=== PATIENT | female | born 1945 | race African-American/Black ===

== ENCOUNTER 2020-05-19 10:20 | Observation (INO) ==
[2020-05-19 11:03] LABS: Amorphous Crystals,Urine Occasional /HPF (Few); Bilirubin,Urine Negative (Negative); Blood, Urine Negative (Negative); Glucose,Urine (UA) Negative (Negative); Ketones,Urine Negative (Negative); Mucus,Urine Occasional /LPF (Occasional); Nitrite,Urine Negative (Negative); Protein,Urine 30 MG/DL; RBC,Urine <1 /HPF (0-4); Squamous Epithelial Cell,Urine Occasional /HPF (0-10); Urine Appearance Slightly Hazy (Clear); Urine Specific Gravity 1.026 (1.001-1.035); Urine Urobilinogen < 2.0 EU/DL (0.2-1.0); WBC,Urine <1 /HPF (0-6)
[2020-05-19 11:04] LABS: Urine Color Yellow (Yellow)
[2020-05-19 11:32] LABS: Basophils % 0.2 % (0.0-0.8); Eosinophils % 0.2 % (0.00-10.9); Hematocrit 34.4 VOL% (35.7-47.0); Hemoglobin 10.6 GM/DL (12.0-16.0); Immature Granulocytes % 1.5 %; Immature Granulocytes Absolute 0.19 #; Lymphocytes # 0.6 10*3/uL (1.4-4.0); Mean Corpuscular HGB Conc 30.8 GM/DL (32-36); Mean Corpuscular Volume 80.6 FL (87-102); Mean Platelet Volume 10.4 FL (9.6-12.0); Monocytes % 6.1 % (1.7-12.7); Platelet Count 315 T/CUMM (130-400); Red Blood Count 4.27 MC/CUMM (3.8-5.5); Red Cell Distribution Width 19.2 % (9.3-17.3); White Blood Count 12.7 T/CUMM (4-12)
[2020-05-19 11:43] LABS: Troponin I 0.019 NG/ML (0.00-0.045)
[2020-05-19 11:44] LABS: Calcium 8.7 MG/DL (8.5-10.1); Osmolality,Calculated 287.1 MOS/KG (273-304)
[2020-05-19] MEDS ORDERED: SODIUM CHLORIDE 0.9% 1,000 ML IV STA (14:06)
[2020-05-19] MEDS ORDERED: ONDANSETRON 4 MG/2 ML VIAL IV PRN (15:53)
[2020-05-19] MEDS ORDERED: DEXTROSE 50% 25 GM/50 ML VIAL IV PRN (15:53)
[2020-05-19] MEDS ORDERED: ACETAMINOPHEN 325 MG TABLET PO PRN (15:53)
[2020-05-19] MEDS ORDERED: GLUCAGON 1 MG VIAL IM PRN (15:53)
[2020-05-19] MEDS ORDERED: MAGNESIUM HYDROXIDE SUSP 30 ML UDCUP PO PRN (16:07)
[2020-05-19] MEDS ORDERED: POLYETHYLENE GLYCOL POWDER 17 GM PACK PO PRN (16:07)
[2020-05-19] MEDS ORDERED: cloNIDine 0.1 MG TABLET PO PRN (16:07)
[2020-05-19] MEDS ORDERED: ENOXAPARIN 40 MG/0.4 ML SYRINGE SUBCUT SCH (16:30)
[2020-05-19] MEDS ORDERED: PHENYTOIN INJ 500 MG in SODIUM CHLORIDE 0.9% 100 ML IV ONE (21:00)
[2020-05-19] MEDS ORDERED: VERAPAMIL SR 240 MG TABLET PO SCH (21:00)
[2020-05-20] MEDS: MEMANTINE 5 MG TABLET PO SCH ×2 (00:42→09:15)
[2020-05-20] MEDS: DOCUSATE/SENNA 50-8.6 MG TABLET PO SCH ×2 (00:42→09:15)
[2020-05-20] MEDS: MENTHOL/ZINC OXIDE OINT 71 GM JAR TOP SCH ×3 (00:44→14:02)
[2020-05-20] MEDS ORDERED: PHENYTOIN INJ 500 MG in SODIUM CHLORIDE 0.9% 100 ML IV ONE (01:00)
[2020-05-20 05:49] LABS: Basophils % 0.3 % (0.0-0.8); Eosinophils % 0.4 % (0.00-10.9); Hemoglobin 10.1 GM/DL (12.0-16.0); Immature Granulocytes % 0.6 %; Immature Granulocytes Absolute 0.06 #; Lymphocytes # 1.3 10*3/uL (1.4-4.0); Lymphocytes % 13.2 % (21.3-54.2); Mean Corpuscular HGB Conc 31.6 GM/DL (32-36); Mean Corpuscular Volume 80.4 FL (87-102); Mean Platelet Volume 10.5 FL (9.6-12.0); Monocytes % 9.9 % (1.7-12.7); Neutrophils % 75.6 % (38.7-73.9); Platelet Count 298 T/CUMM (130-400); Red Blood Count 3.98 MC/CUMM (3.8-5.5); Red Cell Distribution Width 19.2 % (9.3-17.3)
[2020-05-20 06:32] LABS: Calcium 8.7 MG/DL (8.5-10.1); Osmolality,Calculated 282.3 MOS/KG (273-304)
[2020-05-20] MEDS ORDERED: ASCORBIC ACID 500 MG TABLET PO SCH (09:00)
[2020-05-20] MEDS ORDERED: CHOLECALCIFEROL 1,000 UNIT TABLET PO SCH (09:00)
[2020-05-20] MEDS ORDERED: ASPIRIN EC 325 MG TABLET PO SCH (09:00)
[2020-05-20] MEDS ORDERED: carvediloL 6.25 MG TABLET PO SCH (09:00)
[2020-05-20] MEDS ORDERED: lisinopriL 20 MG TABLET PO SCH (09:00)
[2020-05-20] MEDS ORDERED: MULTIVITAMIN (CENTRUM) TABLET PO SCH (09:00)
[2020-05-20] MEDS ORDERED: PHENYTOIN 100 MG/4 ML UDCUP PO SCH (09:00)
[2020-05-20] MEDS ORDERED: DONEPEZIL 10 MG TABLET PO SCH (09:00)
[2020-05-20 11:28] VITALS: BP 106/61
== END 2020-05-20 14:01 ==
LOC: N.EDINP 10:20 → N.ED 10:20 → N.3E 19:44
PROVIDERS: ADMIT Internal Medicine Geriatric Medicine; ATTEND Internal Medicine Geriatric Medicine

== ENCOUNTER 2020-09-08 06:01 | Inpatient (IN) ==
[2020-09-08] MEDS ORDERED: SODIUM CHLORIDE 0.9% 1,000 ML IV STA ×2 (06:06→07:41)
[2020-09-08] MEDS ORDERED: ONDANSETRON 4 MG/2 ML VIAL IV STA (06:06)
[2020-09-08] MEDS ORDERED: PANTOPRAZOLE 40 MG VIAL IV STA (06:06)
[2020-09-08] MEDS ORDERED: ETOMIDATE 20 MG/10 ML VIAL IV ONE (06:07)
[2020-09-08] MEDS ORDERED: MIDAZOLAM 2 MG/2 ML VIAL IV STA ×2 (06:07→10:30)
[2020-09-08] MEDS ORDERED: PIPERACILLIN/TAZOBACTAM 3,375 MG in SODIUM CHLORIDE 0.9% 100 ML IV STA (06:13)
[2020-09-08] MEDS ORDERED: SODIUM CHLORIDE 0.9% 1,000 ML IV PRN ×2 (06:21→08:52)
[2020-09-08] MEDS ORDERED: ROCURONIUM 100 MG/10 ML VIAL IV ONE (06:23)
[2020-09-08] MEDS ORDERED: SODIUM CHLORIDE 0.9% 1,000 ML IV ONE (07:00)
[2020-09-08 07:01] LABS: Basophils % 0.3 % (0.0-0.8); Hematocrit 36.7 VOL% (35.7-47.0); Hemoglobin 11.8 GM/DL (12.0-16.0); Immature Granulocytes % 0.3 %; Immature Granulocytes Absolute 0.01 #; Lymphocytes # 0.3 10*3/uL (1.4-4.0); Lymphocytes % 6.8 % (21.3-54.2); Mean Corpuscular HGB Conc 32.2 GM/DL (32-36); Mean Platelet Volume 9.6 FL (9.6-12.0); Monocytes % 6.1 % (1.7-12.7); Neutrophils % 86.5 % (38.7-73.9); Platelet Count 329 T/CUMM (130-400); Red Blood Count 3.99 MC/CUMM (3.8-5.5); Red Cell Distribution Width 17.9 % (9.3-17.3)
[2020-09-08 07:13] LABS: INR 1.1; PT Patient Result 11.9 SECS (9.8-11.9)
[2020-09-08] MEDS ORDERED: ROCURONIUM 100 MG/10 ML VIAL IV STA (07:15)
[2020-09-08 07:19] LABS: Albumin 2.5 G/DL (3.4-5.0); Bilirubin,Total 1.7 MG/DL (0.2-1.0); Calcium 8.1 MG/DL (8.5-10.1); Osmolality,Calculated 301.6 MOS/KG (273-304); Potassium 3.8 MMOL/L (3.5-5.1); Total Protein 6.7 G/DL (6.4-8.3)
[2020-09-08 07:37] LABS: Band Neutrophils 20 % (0-10); Hypochromasia 1+; Lymphocytes 6 % (20-55); Microcytosis 1+; Platelet Estimate Adequate; Segmented Neutrophils 66 % (50-85); Total Cells Counted 100
[2020-09-08 07:38] LABS: Ovalocytes Slight
[2020-09-08] MEDS: NOREPINEPHRINE 8 MG in SODIUM CHLORIDE 0.9% 242 ML IV PRN ×2 (09:10→18:20)
[2020-09-08] MEDS ORDERED: MIDAZOLAM 10 MG/2 ML VIAL ONE (10:29)
[2020-09-08] MEDS ORDERED: ONDANSETRON 4 MG/2 ML VIAL IV PRN (11:31)
[2020-09-08] MEDS ORDERED: ALBUTEROL 2.5 MG/3 ML NEB RESP TX PRN (11:31)
[2020-09-08] MEDS: LACTATED RINGERS 1,000 ML IV SCH ×2 (11:37→18:20)
[2020-09-08 11:41] LABS: Hematocrit 38.8 VOL% (35.7-47.0); Hemoglobin 12.8 GM/DL (12.0-16.0); Immature Granulocytes % 0.7 %; Immature Granulocytes Absolute 0.02 #; Lymphocytes # 0.8 10*3/uL (1.4-4.0); Lymphocytes % 25.7 % (21.3-54.2); Mean Corpuscular Volume 89.6 FL (87-102); Mean Platelet Volume 9.4 FL (9.6-12.0); Monocytes % 9.1 % (1.7-12.7); Neutrophils % 64.5 % (38.7-73.9); Platelet Count 236 T/CUMM (130-400); Red Blood Count 4.33 MC/CUMM (3.8-5.5); Red Cell Distribution Width 18.2 % (9.3-17.3); White Blood Count 3.1 T/CUMM (4-12)
[2020-09-08] MEDS: PANTOPRAZOLE 40 MG VIAL IV SCH ×2 (11:55→20:02)
[2020-09-08 12:22] LABS: Atypical Lymphocytes Few; Band Neutrophils 47 % (0-10); Lymphocytes 30 % (20-55); Macrocytosis Slight; Metamyelocytes 9 %; Platelet Estimate Normal; Segmented Neutrophils 6 % (50-85); Smudge Cells Few; Total Cells Counted 100
[2020-09-08 18:01] LABS: Bacteria,Urine Many /HPF (Few); Bilirubin,Urine Negative (Negative); Blood, Urine Negative (Negative); Glucose,Urine (UA) Negative (Negative); Ketones,Urine Negative (Negative); Nitrite,Urine Negative (Negative); Protein,Urine 30 MG/DL; RBC,Urine 16 /HPF (0-4); Squamous Epithelial Cell,Urine Occasional /HPF (0-10); Urine Appearance CLOUDY (Clear); Urine Color Amber (Yellow); WBC,Urine 6 /HPF (0-6)
[2020-09-08 18:11] LABS: ABG Base Excess -3.6 MMOL/L (-2.5-2.5); ABG HCO3 21.5 MMOL/L (20-26); ABG Oxygen Saturation 99.6 % (95-100); ABG PCO2 24.3 MM HG (35-48); ABG PH 7.484 (7.35-7.45); ABG TCO2 15.9 MMOL/L (23-27); Allen Test Positive; Pt O2 Delivery Device Ventilator
[2020-09-08] MEDS: ACETAMINOPHEN 325 MG TABLET PO PRN (20:03)
[2020-09-08] MEDS: PIPERACILLIN/TAZOBACTAM 3,375 MG in SODIUM CHLORIDE 0.9% 100 ML IV SCH (20:03)
[2020-09-09] MEDS ORDERED: VANCOMYCIN INJ 1,000 MG in SODIUM CHLORIDE 0.9% 250 ML IV SCH
[2020-09-09] MEDS: NOREPINEPHRINE 8 MG in SODIUM CHLORIDE 0.9% 242 ML IV PRN ×4 (00:36→22:03)
[2020-09-09] MEDS: LACTATED RINGERS 1,000 ML IV SCH ×2 (01:00→08:29)
[2020-09-09] MEDS: MIDAZOLAM 100 MG in SODIUM CHLORIDE 0.9% 80 ML IV PRN (01:31)
[2020-09-09 03:26] LABS: ABG Base Excess -6.1 MMOL/L (-2.5-2.5); ABG HCO3 19.5 MMOL/L (20-26); ABG Oxygen Saturation 99.9 % (95-100); ABG PCO2 22.2 MM HG (35-48); ABG PH 7.465 (7.35-7.45); ABG TCO2 14.1 MMOL/L (23-27); Allen Test Positive; Pt O2 Delivery Device Ventilator
[2020-09-09] MEDS: PIPERACILLIN/TAZOBACTAM 3,375 MG in SODIUM CHLORIDE 0.9% 100 ML IV SCH (04:42)
[2020-09-09 04:58] LABS: Basophils # 0.1 10*3/uL (0.0-0.2); Basophils % 0.3 % (0.0-0.8); Hematocrit 34.7 VOL% (35.7-47.0); Hemoglobin 11.6 GM/DL (12.0-16.0); Immature Granulocytes % 1.5 %; Immature Granulocytes Absolute 0.22 #; Lymphocytes # 1.1 10*3/uL (1.4-4.0); Lymphocytes % 7.6 % (21.3-54.2); Mean Corpuscular HGB Conc 33.4 GM/DL (32-36); Mean Corpuscular Volume 89.2 FL (87-102); Monocytes % 4.7 % (1.7-12.7); Neutrophils % 85.9 % (38.7-73.9); Platelet Count 202 T/CUMM (130-400); Red Blood Count 3.89 MC/CUMM (3.8-5.5); Red Cell Distribution Width 18.6 % (9.3-17.3); White Blood Count 14.4 T/CUMM (4-12)
[2020-09-09 05:13] LABS: Albumin 1.8 G/DL (3.4-5.0); Bilirubin,Total 2.4 MG/DL (0.2-1.0); Calcium 6.7 MG/DL (8.5-10.1); Osmolality,Calculated 311.1 MOS/KG (273-304); Potassium 3.6 MMOL/L (3.5-5.1); Total Protein 5.6 G/DL (6.4-8.3)
[2020-09-09 05:29] LABS: Band Neutrophils 16 % (0-10); Lymphocytes 7 % (20-55); Metamyelocytes 1 %; Myelocytes 2 %; Platelet Estimate Adequate; Segmented Neutrophils 72 % (50-85); Total Cells Counted 100
[2020-09-09 05:30] LABS: Hypochromasia 1+; Microcytosis 1+
[2020-09-09] MEDS ORDERED: LACTATED RINGERS 1,000 ML IV SCH (08:00)
[2020-09-09] MEDS ORDERED: MAGNESIUM SULF RIDER 4 GM in PREMIX 1 EACH IV ONE (08:43)
[2020-09-09] MEDS ORDERED: CALCIUM GLUCONATE 2,000 MG in SODIUM CHLORIDE 0.9% 100 ML IV ONE (08:44)
[2020-09-09] MEDS: PHENYTOIN 100 MG/4 ML UDCUP PO SCH ×2 (09:15→22:07)
[2020-09-09] MEDS: MEROPENEM 500 MG in SODIUM CHLORIDE 0.9% 100 ML IV SCH ×3 (09:53→22:00)
[2020-09-09] MEDS: PANTOPRAZOLE 40 MG VIAL IV SCH ×2 (09:53→22:00)
[2020-09-09] MEDS: LEVOFLOXACIN INJ 750 MG in PREMIX 1 EACH IV SCH (09:55)
[2020-09-09] MEDS: SODIUM BICARB INJ 50 MEQ in STERILE WATER INJ 1,000 ML IV SCH ×2 (11:22→18:03)
[2020-09-09] MEDS ORDERED: propofoL 200 MG/20 ML VIAL IV ONE (12:10)
[2020-09-09] MEDS ORDERED: DIGOXIN 0.5 MG/2 ML AMP IV ONE (16:41)
[2020-09-09] MEDS ORDERED: DIGOXIN 0.5 MG/2 ML AMP ONE (16:48)
[2020-09-10] MEDS: SODIUM BICARB INJ 50 MEQ in STERILE WATER INJ 1,000 ML IV SCH ×3 (01:03→09:07)
[2020-09-10 03:22] LABS: ABG HCO3 23.1 MMOL/L (20-26); ABG Oxygen Saturation 96.9 % (95-100); ABG PCO2 32.2 MM HG (35-48); ABG PH 7.473 (7.35-7.45); ABG PO2 89.2 MM HG (80-95); ABG TCO2 24.1 MMOL/L (23-27); Allen Test Positive; Pt O2 Delivery Device Ventilator
[2020-09-10] MEDS: MEROPENEM 500 MG in SODIUM CHLORIDE 0.9% 100 ML IV SCH ×4 (04:00→20:29)
[2020-09-10 04:55] LABS: Basophils % 0.3 % (0.0-0.8); Eosinophils % 0.5 % (0.00-10.9); Hematocrit 33.9 VOL% (35.7-47.0); Hemoglobin 10.9 GM/DL (12.0-16.0); Immature Granulocytes % 0.7 %; Immature Granulocytes Absolute 0.05 #; Lymphocytes # 0.7 10*3/uL (1.4-4.0); Lymphocytes % 9.4 % (21.3-54.2); Mean Corpuscular HGB Conc 32.2 GM/DL (32-36); Mean Corpuscular Volume 92.4 FL (87-102); Mean Platelet Volume 9.4 FL (9.6-12.0); Monocytes % 7.3 % (1.7-12.7); Neutrophils % 81.8 % (38.7-73.9); Platelet Count 156 T/CUMM (130-400); Red Blood Count 3.67 MC/CUMM (3.8-5.5); Red Cell Distribution Width 18.4 % (9.3-17.3); White Blood Count 7.4 T/CUMM (4-12)
[2020-09-10 05:15] LABS: Albumin 1.7 G/DL (3.4-5.0); Calcium 7.1 MG/DL (8.5-10.1); Osmolality,Calculated 288.8 MOS/KG (273-304); Total Protein 5.3 G/DL (6.4-8.3)
[2020-09-10 05:28] LABS: Band Neutrophils 21 % (0-10); Hypochromasia 2+; Lymphocytes 10 % (20-55); Metamyelocytes 3 %; Platelet Estimate Adequate; Segmented Neutrophils 59 % (50-85); Total Cells Counted 100
[2020-09-10] MEDS ORDERED: DIGOXIN 0.5 MG/2 ML AMP IV ONE (06:00)
[2020-09-10] MEDS: PANTOPRAZOLE 40 MG VIAL IV SCH ×2 (08:47→20:29)
[2020-09-10] MEDS ORDERED: GLUCAGON 1 MG VIAL IM PRN (09:17)
[2020-09-10] MEDS ORDERED: DEXTROSE 50% 25 GM/50 ML VIAL IV PRN (09:17)
[2020-09-10] MEDS: PHENYTOIN 100 MG/4 ML UDCUP PO SCH ×2 (11:02→20:29)
[2020-09-10] MEDS: POTASSIUM CHLORIDE 20 MEQ/15 ML UDCUP PER TUBE SCH ×3 (11:02→16:47)
[2020-09-10] MEDS: ACETAMINOPHEN 325 MG TABLET PO PRN (11:03)
[2020-09-10] MEDS: DIGOXIN 0.5 MG/2 ML AMP IV SCH (17:56)
[2020-09-11] MEDS: MEROPENEM 500 MG in SODIUM CHLORIDE 0.9% 100 ML IV SCH ×4 (02:17→21:52)
[2020-09-11 04:48] LABS: Basophils % 0.1 % (0.0-0.8); Eosinophils % 0.3 % (0.00-10.9); Hematocrit 32.6 VOL% (35.7-47.0); Hemoglobin 10.5 GM/DL (12.0-16.0); Immature Granulocytes % 0.9 %; Immature Granulocytes Absolute 0.09 #; Lymphocytes # 0.9 10*3/uL (1.4-4.0); Lymphocytes % 9.7 % (21.3-54.2); Mean Corpuscular HGB Conc 32.2 GM/DL (32-36); Mean Corpuscular Volume 92.4 FL (87-102); Mean Platelet Volume 11.1 FL (9.6-12.0); Monocytes % 7.2 % (1.7-12.7); Neutrophils % 81.8 % (38.7-73.9); Platelet Count 152 T/CUMM (130-400); Red Blood Count 3.53 MC/CUMM (3.8-5.5); Red Cell Distribution Width 17.8 % (9.3-17.3); White Blood Count 9.5 T/CUMM (4-12)
[2020-09-11 04:55] LABS: ABG HCO3 24.3 MMOL/L (20-26); ABG PCO2 26.9 MM HG (35-48); ABG PH 7.573 (7.35-7.45); ABG PO2 74.4 MM HG (80-95); ABG TCO2 25.1 MMOL/L (23-27)
[2020-09-11 05:11] LABS: Band Neutrophils 1 % (0-10); Eosinophils 1 % (0-10); Hypochromasia 1+; Lymphocytes 12 % (20-55); Microcytosis 1+; Platelet Estimate Adequate; Segmented Neutrophils 84 % (50-85); Total Cells Counted 100
[2020-09-11 05:37] LABS: Albumin 1.7 G/DL (3.4-5.0); Bilirubin,Total 1.2 MG/DL (0.2-1.0); Calcium 7.1 MG/DL (8.5-10.1); Osmolality,Calculated 288.8 MOS/KG (273-304); Potassium 3.1 MMOL/L (3.5-5.1); Total Protein 5.3 G/DL (6.4-8.3)
[2020-09-11] MEDS: PHENYTOIN 100 MG/4 ML UDCUP PO SCH ×2 (09:18→21:52)
[2020-09-11] MEDS: LEVOFLOXACIN INJ 750 MG in PREMIX 1 EACH IV SCH (09:19)
[2020-09-11] MEDS: PANTOPRAZOLE 40 MG VIAL IV SCH ×2 (09:19→21:52)
[2020-09-11] MEDS: POTASSIUM CHLORIDE 20 MEQ/15 ML UDCUP PER TUBE SCH ×4 (10:08→21:52)
[2020-09-11] MEDS: MIDAZOLAM 100 MG in SODIUM CHLORIDE 0.9% 80 ML IV PRN (14:18)
[2020-09-11] MEDS: DIGOXIN 0.5 MG/2 ML AMP IV SCH (17:08)
[2020-09-12] MEDS: MEROPENEM 500 MG in SODIUM CHLORIDE 0.9% 100 ML IV SCH ×4 (02:23→21:22)
[2020-09-12 04:55] LABS: Basophils % 0.2 % (0.0-0.8); Eosinophils # 0.1 10*3/uL (0.0-0.87); Eosinophils % 0.4 % (0.00-10.9); Hematocrit 34.2 VOL% (35.7-47.0); Hemoglobin 10.9 GM/DL (12.0-16.0); Immature Granulocytes % 4.5 %; Immature Granulocytes Absolute 0.53 #; Lymphocytes # 1.1 10*3/uL (1.4-4.0); Lymphocytes % 9.4 % (21.3-54.2); Mean Corpuscular HGB Conc 31.9 GM/DL (32-36); Mean Corpuscular Volume 92.2 FL (87-102); Mean Platelet Volume 10.6 FL (9.6-12.0); Monocytes % 9.9 % (1.7-12.7); Neutrophils % 75.6 % (38.7-73.9); Platelet Count 135 T/CUMM (130-400); Red Blood Count 3.71 MC/CUMM (3.8-5.5); Red Cell Distribution Width 17.7 % (9.3-17.3); White Blood Count 11.7 T/CUMM (4-12)
[2020-09-12 05:27] LABS: Lymphocytes 7 % (20-55); Platelet Estimate Adequate; Segmented Neutrophils 84 % (50-85); Total Cells Counted 100
[2020-09-12 05:28] LABS: Hypochromasia 1+; Microcytosis 1+; Ovalocytes Slight
[2020-09-12 05:38] LABS: Albumin 1.7 G/DL (3.4-5.0); Bilirubin,Total 0.7 MG/DL (0.2-1.0); Calcium 7.7 MG/DL (8.5-10.1); Osmolality,Calculated 288.7 MOS/KG (273-304); Potassium 3.9 MMOL/L (3.5-5.1); Total Protein 5.8 G/DL (6.4-8.3)
[2020-09-12 06:19] LABS: ABG Base Excess 5.6 MMOL/L (-2.5-2.5); ABG HCO3 29.5 MMOL/L (20-26); ABG Oxygen Saturation 97.9 % (95-100); ABG PCO2 34.8 MM HG (35-48); ABG PH 7.522 (7.35-7.45); ABG TCO2 25.6 MMOL/L (23-27)
[2020-09-12] MEDS ORDERED: FUROSEMIDE 40 MG/4 ML VIAL IV ONE (08:29)
[2020-09-12] MEDS: PANTOPRAZOLE 40 MG VIAL IV SCH ×2 (09:30→21:22)
[2020-09-12] MEDS: PHENYTOIN 100 MG/4 ML UDCUP PO SCH ×2 (09:30→21:21)
[2020-09-12] MEDS: DIGOXIN 0.5 MG/2 ML AMP IV SCH (18:13)
[2020-09-13 03:20] LABS: ABG HCO3 31.8 MMOL/L (20-26); ABG Oxygen Saturation 98.6 % (95-100); ABG PCO2 36.8 MM HG (35-48); ABG PH 7.535 (7.35-7.45); ABG PO2 95.6 MM HG (80-95); ABG TCO2 27.7 MMOL/L (23-27)
[2020-09-13] MEDS: MEROPENEM 500 MG in SODIUM CHLORIDE 0.9% 100 ML IV SCH ×2 (04:18→10:42)
[2020-09-13 04:24] LABS: Basophils % 0.4 % (0.0-0.8); Eosinophils # 0.1 10*3/uL (0.0-0.87); Eosinophils % 0.8 % (0.00-10.9); Hemoglobin 10.9 GM/DL (12.0-16.0); Immature Granulocytes % 7.3 %; Immature Granulocytes Absolute 0.81 #; Lymphocytes # 1.4 10*3/uL (1.4-4.0); Lymphocytes % 12.5 % (21.3-54.2); Mean Corpuscular HGB Conc 32.1 GM/DL (32-36); Mean Corpuscular Volume 91.4 FL (87-102); Mean Platelet Volume 11.1 FL (9.6-12.0); Monocytes % 12.6 % (1.7-12.7); Neutrophils % 66.4 % (38.7-73.9); Platelet Count 149 T/CUMM (130-400); Red Blood Count 3.72 MC/CUMM (3.8-5.5); Red Cell Distribution Width 17.1 % (9.3-17.3); White Blood Count 11.1 T/CUMM (4-12)
[2020-09-13 04:50] LABS: Calcium 7.5 MG/DL (8.5-10.1); Osmolality,Calculated 279.3 MOS/KG (273-304); Potassium 3.5 MMOL/L (3.5-5.1)
[2020-09-13 04:59] LABS: Band Neutrophils 1 % (0-10); Eosinophils 2 % (0-10); Hypochromasia 1+; Lymphocytes 13 % (20-55); Metamyelocytes 2 %; Microcytosis 1+; Myelocytes 1 %; Segmented Neutrophils 75 % (50-85); Total Cells Counted 100
[2020-09-13 05:00] LABS: Ovalocytes Slight; Platelet Estimate Adequate; Stomatocytes Slight
[2020-09-13] MEDS: FUROSEMIDE 40 MG/4 ML VIAL IV SCH ×2 (10:03→16:40)
[2020-09-13] MEDS: PHENYTOIN 100 MG/4 ML UDCUP PO SCH ×2 (10:03→22:01)
[2020-09-13] MEDS: POTASSIUM CHLORIDE 20 MEQ/15 ML UDCUP PER TUBE SCH ×4 (10:03→22:02)
[2020-09-13] MEDS: LEVOFLOXACIN INJ 750 MG in PREMIX 1 EACH IV SCH (10:41)
[2020-09-13] MEDS: PANTOPRAZOLE 40 MG VIAL IV SCH (10:42)
[2020-09-13] MEDS: LEVOFLOXACIN 750 MG TABLET PER TUBE SCH (11:52)
[2020-09-13] MEDS: MIDAZOLAM 100 MG in SODIUM CHLORIDE 0.9% 80 ML IV PRN (18:00)
[2020-09-13] MEDS: DIGOXIN 0.5 MG/2 ML AMP IV SCH (18:45)
[2020-09-13] MEDS: FAMOTIDINE 8 MG/ML 50 ML/BOTTLE PO SCH (22:02)
[2020-09-14 04:07] LABS: ABG Base Excess 8.3 MMOL/L (-2.5-2.5); ABG HCO3 32.9 MMOL/L (20-26); ABG Oxygen Saturation 98.3 % (95-100); ABG PCO2 45.5 MM HG (35-48); ABG PH 7.477 (7.35-7.45); ABG PO2 114.9 MM HG (80-95); ABG TCO2 34.3 MMOL/L (23-27)
[2020-09-14 04:08] LABS: Basophils % 0.3 % (0.0-0.8); Eosinophils # 0.1 10*3/uL (0.0-0.87); Eosinophils % 0.6 % (0.00-10.9); Hematocrit 35.6 VOL% (35.7-47.0); Hemoglobin 11.4 GM/DL (12.0-16.0); Immature Granulocytes % 5.7 %; Immature Granulocytes Absolute 0.71 #; Lymphocytes # 1.5 10*3/uL (1.4-4.0); Lymphocytes % 11.9 % (21.3-54.2); Mean Corpuscular Volume 93.4 FL (87-102); Mean Platelet Volume 11.1 FL (9.6-12.0); Monocytes % 10.9 % (1.7-12.7); Neutrophils % 70.6 % (38.7-73.9); Platelet Count 198 T/CUMM (130-400); Red Blood Count 3.81 MC/CUMM (3.8-5.5); Red Cell Distribution Width 17.3 % (9.3-17.3); White Blood Count 12.4 T/CUMM (4-12)
[2020-09-14 04:36] LABS: Band Neutrophils 1 % (0-10); Calcium 7.9 MG/DL (8.5-10.1); Lymphocytes 14 % (20-55); Osmolality,Calculated 275.7 MOS/KG (273-304); Platelet Estimate Normal; Potassium 4.4 MMOL/L (3.5-5.1); Segmented Neutrophils 80 % (50-85); Total Cells Counted 100
[2020-09-14] MEDS: FAMOTIDINE 8 MG/ML 50 ML/BOTTLE PO SCH ×2 (08:30→23:59)
[2020-09-14] MEDS: FUROSEMIDE 40 MG/4 ML VIAL IV SCH ×2 (08:30→17:57)
[2020-09-14] MEDS: PHENYTOIN 100 MG/4 ML UDCUP PO SCH ×2 (08:30→23:59)
[2020-09-14] MEDS: LEVOFLOXACIN 750 MG TABLET PER TUBE SCH (11:19)
[2020-09-14] MEDS: DIGOXIN 0.5 MG/2 ML AMP IV SCH (19:32)
[2020-09-14] MEDS: FAMOTIDINE 20 MG/2 ML VIAL IV SCH (21:45)
[2020-09-14] MEDS: PHENYTOIN 100 MG/2 ML VIAL IV SCH (21:45)
[2020-09-15 05:09] LABS: Basophils # 0.1 10*3/uL (0.0-0.2); Basophils % 0.7 % (0.0-0.8); Eosinophils # 0.1 10*3/uL (0.0-0.87); Eosinophils % 0.7 % (0.00-10.9); Hematocrit 41.1 VOL% (35.7-47.0); Immature Granulocytes % 4.1 %; Immature Granulocytes Absolute 0.44 #; Lymphocytes # 1.4 10*3/uL (1.4-4.0); Lymphocytes % 13.3 % (21.3-54.2); Mean Corpuscular HGB Conc 31.6 GM/DL (32-36); Mean Corpuscular Volume 93.4 FL (87-102); Mean Platelet Volume 11.5 FL (9.6-12.0); Monocytes % 8.5 % (1.7-12.7); Neutrophils % 72.7 % (38.7-73.9); Platelet Count 223 T/CUMM (130-400); Red Cell Distribution Width 17.3 % (9.3-17.3); White Blood Count 10.7 T/CUMM (4-12)
[2020-09-15 05:14] LABS: Calcium 8.3 MG/DL (8.5-10.1); Osmolality,Calculated 274.7 MOS/KG (273-304)
[2020-09-15] MEDS: FUROSEMIDE 40 MG/4 ML VIAL IV SCH ×2 (08:55→16:24)
[2020-09-15] MEDS: FAMOTIDINE 20 MG/2 ML VIAL IV SCH ×2 (08:55→21:06)
[2020-09-15] MEDS: PHENYTOIN 100 MG/2 ML VIAL IV SCH ×2 (08:55→21:06)
[2020-09-15] MEDS: LEVOFLOXACIN 750 MG TABLET PER TUBE SCH (14:23)
[2020-09-15] MEDS ORDERED: POLYETHYLENE GLYCOL POWDER 17 GM PACK PO PRN (15:54)
[2020-09-15] MEDS: carvediloL 6.25 MG TABLET PO SCH (16:07)
[2020-09-15] MEDS: DIGOXIN 0.5 MG/2 ML AMP IV SCH (17:20)
[2020-09-15] MEDS ORDERED: PHENYTOIN 100 MG/4 ML UDCUP PO SCH (21:00)
[2020-09-15] MEDS: MEMANTINE 5 MG TABLET PO SCH (21:05)
[2020-09-16 05:24] LABS: Basophils % 0.3 % (0.0-0.8); Eosinophils % 0.3 % (0.00-10.9); Hematocrit 40.2 VOL% (35.7-47.0); Hemoglobin 12.6 GM/DL (12.0-16.0); Immature Granulocytes % 2.4 %; Immature Granulocytes Absolute 0.29 #; Lymphocytes # 1.3 10*3/uL (1.4-4.0); Lymphocytes % 10.9 % (21.3-54.2); Mean Corpuscular HGB Conc 31.3 GM/DL (32-36); Mean Corpuscular Volume 92.8 FL (87-102); Mean Platelet Volume 10.3 FL (9.6-12.0); Monocytes % 7.7 % (1.7-12.7); Neutrophils % 78.4 % (38.7-73.9); Platelet Count 376 T/CUMM (130-400); Red Blood Count 4.33 MC/CUMM (3.8-5.5)
[2020-09-16 05:48] LABS: Calcium 8.8 MG/DL (8.5-10.1); Osmolality,Calculated 280.5 MOS/KG (273-304); Potassium 3.9 MMOL/L (3.5-5.1)
[2020-09-16] MEDS: carvediloL 6.25 MG TABLET PO SCH (08:42)
[2020-09-16] MEDS: DONEPEZIL 10 MG TABLET PO SCH (08:42)
[2020-09-16] MEDS: MEMANTINE 5 MG TABLET PO SCH (08:42)
[2020-09-16] MEDS: FAMOTIDINE 20 MG/2 ML VIAL IV SCH (08:43)
[2020-09-16] MEDS: FUROSEMIDE 40 MG/4 ML VIAL IV SCH (08:44)
[2020-09-16] MEDS: PHENYTOIN 100 MG/2 ML VIAL IV SCH ×2 (08:44→20:34)
[2020-09-16] MEDS ORDERED: AMINO ACIDS PROTEIN HYDR FIBER PO SCH (09:00)
[2020-09-16] MEDS ORDERED: lisinopriL 20 MG TABLET PO SCH (09:00)
[2020-09-16] MEDS ORDERED: ASPIRIN EC 325 MG TABLET PO SCH (09:00)
[2020-09-16] MEDS: LEVOFLOXACIN 750 MG TABLET PER TUBE SCH (10:05)
[2020-09-16] MEDS ORDERED: METOPROLOL TARTRATE 5 MG/5 ML VIAL IV PRN (10:30)
[2020-09-16] MEDS ORDERED: LORazepam 2 MG/1 ML VIAL IV PRN (10:32)
[2020-09-16] MEDS ORDERED: ACETAMINOPHEN 325 MG/10.15 ML UDCUP PER TUBE PRN (10:54)
[2020-09-16] MEDS: DIGOXIN 0.5 MG/2 ML AMP IV SCH (17:46)
[2020-09-17 05:55] LABS: Basophils % 0.3 % (0.0-0.8); Eosinophils % 0.3 % (0.00-10.9); Hematocrit 38.9 VOL% (35.7-47.0); Hemoglobin 12.5 GM/DL (12.0-16.0); Immature Granulocytes % 1.6 %; Immature Granulocytes Absolute 0.19 #; Lymphocytes # 1.3 10*3/uL (1.4-4.0); Lymphocytes % 10.5 % (21.3-54.2); Mean Corpuscular HGB Conc 32.1 GM/DL (32-36); Mean Corpuscular Volume 93.1 FL (87-102); Mean Platelet Volume 10.3 FL (9.6-12.0); Monocytes % 8.7 % (1.7-12.7); Neutrophils % 78.6 % (38.7-73.9); Platelet Count 406 T/CUMM (130-400); Red Blood Count 4.18 MC/CUMM (3.8-5.5); Red Cell Distribution Width 17.1 % (9.3-17.3)
[2020-09-17 06:25] LABS: Albumin 2.3 G/DL (3.4-5.0); Bilirubin,Total 1.1 MG/DL (0.2-1.0); Calcium 8.8 MG/DL (8.5-10.1); Osmolality,Calculated 286.3 MOS/KG (273-304); Potassium 3.8 MMOL/L (3.5-5.1); Total Protein 7.8 G/DL (6.4-8.3)
[2020-09-17] MEDS: PHENYTOIN 100 MG/2 ML VIAL IV SCH (10:13)
[2020-09-17] MEDS ORDERED: NON-FORMULARY MEDICATION (Acetaminophen [Tylenol 8 Hour] 650 mg Tablet Extended Release) PO PRN (10:29)
[2020-09-17] MEDS ORDERED: cloNIDine 0.1 MG TABLET PO PRN (10:29)
[2020-09-17] MEDS: carvediloL 6.25 MG TABLET PO SCH (15:19)
[2020-09-17] MEDS ORDERED: FUROSEMIDE 40 MG/4 ML VIAL IV ONE (16:31)
[2020-09-17] MEDS ORDERED: METOPROLOL TARTRATE 5 MG/5 ML VIAL IV PRN (16:40)
[2020-09-17] MEDS: ALBUTEROL/IPRATROPIUM 3 ML NEB RESP TX SCH (18:40)
[2020-09-17] MEDS: DOCUSATE/SENNA 50-8.6 MG TABLET PO SCH (20:28)
[2020-09-17] MEDS ORDERED: DIGOXIN 0.25 MG TABLET PO SCH (21:00)
[2020-09-17] MEDS ORDERED: VERAPAMIL SR 120 MG TABLET PO SCH (21:00)
[2020-09-18] MEDS: ALBUTEROL/IPRATROPIUM 3 ML NEB RESP TX SCH ×3 (00:19→07:00)
[2020-09-18 05:22] LABS: Basophils % 0.3 % (0.0-0.8); Eosinophils % 0.1 % (0.00-10.9); Hemoglobin 13.8 GM/DL (12.0-16.0); Immature Granulocytes % 1.1 %; Immature Granulocytes Absolute 0.16 #; Lymphocytes # 1.3 10*3/uL (1.4-4.0); Lymphocytes % 8.7 % (21.3-54.2); Mean Corpuscular HGB Conc 32.1 GM/DL (32-36); Mean Corpuscular Volume 92.7 FL (87-102); Mean Platelet Volume 10.1 FL (9.6-12.0); Neutrophils % 81.8 % (38.7-73.9); Platelet Count 539 T/CUMM (130-400); Red Blood Count 4.64 MC/CUMM (3.8-5.5); White Blood Count 14.8 T/CUMM (4-12)
[2020-09-18 05:30] LABS: INR 1.1; PT Patient Result 11.9 SECS (9.8-11.9)
[2020-09-18 05:50] LABS: Calcium 9.1 MG/DL (8.5-10.1); Potassium 3.9 MMOL/L (3.5-5.1)
[2020-09-18] MEDS ORDERED: LACTATED RINGERS 1,000 ML IV SCH (08:00)
[2020-09-18] MEDS: carvediloL 6.25 MG TABLET PO SCH (08:31)
[2020-09-18 08:51] LABS: Free T4 (Free Thyroxine) 1.32 NG/DL (0.76-1.46); Thyroid Stimulating Hormone 2.08 uIU/ml (0.358-3.74)
[2020-09-18] MEDS ORDERED: FUROSEMIDE 40 MG/4 ML VIAL IV ONE (10:44)
[2020-09-18] MEDS ORDERED: MAGNESIUM SULF RIDER 1 GM in PREMIX 1 EACH IV ONE ×2 (11:00→16:00)
[2020-09-18 11:02] LABS: ABG Base Excess 11.1 MMOL/L (-2.5-2.5); ABG HCO3 34.9 MMOL/L (20-26); ABG Oxygen Saturation 99.1 % (95-100); ABG PCO2 48.7 MM HG (35-48); ABG PH 7.483 (7.35-7.45); ABG TCO2 31.3 MMOL/L (23-27)
[2020-09-18] MEDS: SODIUM CHLORIDE 3% 4 ML NEB RESP TX SCH ×2 (11:15→19:32)
[2020-09-18 11:17] LABS: Calcium 8.8 MG/DL (8.5-10.1); Osmolality,Calculated 299.8 MOS/KG (273-304); Potassium 4.1 MMOL/L (3.5-5.1)
[2020-09-18] MEDS: MULTIVITAMIN (CENTRUM) TABLET PO SCH (11:28)
[2020-09-18] MEDS: DONEPEZIL 10 MG TABLET PO SCH (11:28)
[2020-09-18] MEDS: PHENYTOIN 100 MG/4 ML UDCUP PO SCH (11:28)
[2020-09-18] MEDS: DOCUSATE/SENNA 50-8.6 MG TABLET PO SCH ×2 (11:29→22:15)
[2020-09-18] MEDS: ASCORBIC ACID 500 MG TABLET PO SCH (11:29)
[2020-09-18] MEDS: CHOLECALCIFEROL 1,000 UNIT TABLET PO SCH (11:29)
[2020-09-18] MEDS ORDERED: SODIUM CHLORIDE 0.9% 250 ML IV ONE ×2 (12:13→12:30)
[2020-09-18] MEDS ORDERED: hydrALAZINE 20 MG/1 ML VIAL IV PRN (12:19)
[2020-09-18] MEDS ORDERED: SODIUM CHLORIDE 0.9% 1,000 ML IV SCH (12:30)
[2020-09-18] MEDS ORDERED: LEVALBUTEROL 1.25 MG/3 ML NEB RESP TX SCH (13:00)
[2020-09-18] MEDS ORDERED: SODIUM CHLORIDE 0.9% 500 ML IV ONE (15:05)
[2020-09-18] MEDS: METOPROLOL TARTRATE 5 MG/5 ML VIAL IV SCH ×2 (15:27→22:12)
[2020-09-18] MEDS: PIPERACILLIN/TAZOBACTAM 3,375 MG in SODIUM CHLORIDE 0.9% 100 ML IV SCH ×2 (15:29→22:12)
[2020-09-18] MEDS: SODIUM CHLORIDE 0.9% 1,000 ML IV SCH (17:45)
[2020-09-18 23:43] LABS: Bilirubin,Urine Negative (Negative); Blood, Urine Negative (Negative); Glucose,Urine (UA) Negative (Negative); Hyaline Casts,Urine 4 /LPF (0-3); Ketones,Urine 5 mg/dL (Negative); Mucus,Urine Occasional /LPF (Occasional); Nitrite,Urine Negative (Negative); Protein,Urine Negative; RBC,Urine 2 /HPF (0-4); Squamous Epithelial Cell,Urine Occasional /HPF (0-10); Urine Appearance CLOUDY (Clear); Urine Color Amber (Yellow); WBC,Urine 1 /HPF (0-6)
[2020-09-19] MEDS: METOPROLOL TARTRATE 5 MG/5 ML VIAL IV SCH ×4 (04:53→21:59)
[2020-09-19] MEDS: PIPERACILLIN/TAZOBACTAM 3,375 MG in SODIUM CHLORIDE 0.9% 100 ML IV SCH ×3 (04:53→21:59)
[2020-09-19] MEDS: SODIUM CHLORIDE 0.9% 1,000 ML IV SCH ×2 (04:54→11:40)
[2020-09-19 05:16] LABS: Basophils % 0.3 % (0.0-0.8); Hematocrit 39.6 VOL% (35.7-47.0); Hemoglobin 12.3 GM/DL (12.0-16.0); Immature Granulocytes % 0.9 %; Immature Granulocytes Absolute 0.13 #; Lymphocytes # 1.2 10*3/uL (1.4-4.0); Lymphocytes % 8.4 % (21.3-54.2); Mean Corpuscular HGB Conc 31.1 GM/DL (32-36); Mean Corpuscular Volume 96.1 FL (87-102); Mean Platelet Volume 10.4 FL (9.6-12.0); Monocytes % 7.5 % (1.7-12.7); Neutrophils % 82.9 % (38.7-73.9); Platelet Count 438 T/CUMM (130-400); Red Blood Count 4.12 MC/CUMM (3.8-5.5); Red Cell Distribution Width 16.9 % (9.3-17.3); White Blood Count 14.3 T/CUMM (4-12)
[2020-09-19 05:43] LABS: Bilirubin,Total 0.9 MG/DL (0.2-1.0); Calcium 8.1 MG/DL (8.5-10.1); Osmolality,Calculated 309.1 MOS/KG (273-304); Potassium 3.6 MMOL/L (3.5-5.1); Total Protein 7.1 G/DL (6.4-8.3)
[2020-09-19] MEDS: SODIUM CHLORIDE 3% 4 ML NEB RESP TX SCH ×2 (07:35→19:17)
[2020-09-19] MEDS: DOCUSATE/SENNA 50-8.6 MG TABLET PO SCH ×2 (09:19→22:00)
[2020-09-19] MEDS: MULTIVITAMIN (CENTRUM) TABLET PO SCH (09:19)
[2020-09-19] MEDS: ASCORBIC ACID 500 MG TABLET PO SCH (09:19)
[2020-09-19] MEDS: CHOLECALCIFEROL 1,000 UNIT TABLET PO SCH (09:19)
[2020-09-19] MEDS: DEXTROSE 5% NACL 0.45% 1,000 ML IV SCH ×2 (09:35→22:00)
[2020-09-20] MEDS: METOPROLOL TARTRATE 5 MG/5 ML VIAL IV SCH (04:46)
[2020-09-20] MEDS: PIPERACILLIN/TAZOBACTAM 3,375 MG in SODIUM CHLORIDE 0.9% 100 ML IV SCH (04:47)
[2020-09-20 07:07] LABS: Basophils % 0.3 % (0.0-0.8); Eosinophils % 0.4 % (0.00-10.9); Hematocrit 33.3 VOL% (35.7-47.0); Hemoglobin 10.3 GM/DL (12.0-16.0); Immature Granulocytes % 0.7 %; Immature Granulocytes Absolute 0.08 #; Lymphocytes % 9.6 % (21.3-54.2); Mean Corpuscular HGB Conc 30.9 GM/DL (32-36); Mean Corpuscular Volume 97.9 FL (87-102); Mean Platelet Volume 10.6 FL (9.6-12.0); Monocytes % 7.6 % (1.7-12.7); Neutrophils % 81.4 % (38.7-73.9); Platelet Count 343 T/CUMM (130-400); Red Cell Distribution Width 17.1 % (9.3-17.3); White Blood Count 10.8 T/CUMM (4-12)
[2020-09-20] MEDS: SODIUM CHLORIDE 3% 4 ML NEB RESP TX SCH ×2 (07:35→19:13)
[2020-09-20 08:14] LABS: Calcium 7.8 MG/DL (8.5-10.1); Osmolality,Calculated 312.9 MOS/KG (273-304); Potassium 2.9 MMOL/L (3.5-5.1)
[2020-09-20] MEDS ORDERED: METOPROLOL TARTRATE 5 MG/5 ML VIAL IV PRN (08:57)
[2020-09-20] MEDS: PHENYTOIN 100 MG/4 ML UDCUP PO SCH (09:44)
[2020-09-20] MEDS: MULTIVITAMIN (CENTRUM) TABLET PO SCH (09:44)
[2020-09-20] MEDS: CHOLECALCIFEROL 1,000 UNIT TABLET PO SCH (09:44)
[2020-09-20] MEDS: METOPROLOL TARTRATE 25 MG TABLET PO SCH ×3 (09:44→20:33)
[2020-09-20] MEDS: POTASSIUM CHLORIDE 20 MEQ/15 ML UDCUP PER TUBE PRN ×3 (09:45→16:58)
[2020-09-20] MEDS: ASCORBIC ACID 500 MG TABLET PO SCH (09:45)
[2020-09-20] MEDS: DEXTROSE 5% 1,000 ML IV SCH (09:45)
[2020-09-20] MEDS: AMOXICILLIN/CLAV ES 600 125 ML/BOTTLE PO SCH ×2 (12:24→20:34)
[2020-09-21 06:33] LABS: Basophils % 0.2 % (0.0-0.8); Eosinophils # 0.1 10*3/uL (0.0-0.87); Eosinophils % 0.6 % (0.00-10.9); Hematocrit 31.3 VOL% (35.7-47.0); Hemoglobin 10.2 GM/DL (12.0-16.0); Immature Granulocytes % 0.5 %; Immature Granulocytes Absolute 0.06 #; Lymphocytes # 1.1 10*3/uL (1.4-4.0); Lymphocytes % 9.8 % (21.3-54.2); Mean Corpuscular HGB Conc 32.6 GM/DL (32-36); Mean Corpuscular Volume 92.9 FL (87-102); Monocytes % 8.9 % (1.7-12.7); Platelet Count 310 T/CUMM (130-400); Red Blood Count 3.37 MC/CUMM (3.8-5.5); Red Cell Distribution Width 16.9 % (9.3-17.3); White Blood Count 11.1 T/CUMM (4-12)
[2020-09-21] MEDS: DEXTROSE 5% 1,000 ML IV SCH (06:50)
[2020-09-21 06:58] LABS: Albumin 1.9 G/DL (3.4-5.0); Bilirubin,Total 0.7 MG/DL (0.2-1.0); Calcium 7.6 MG/DL (8.5-10.1); Potassium 3.9 MMOL/L (3.5-5.1); Total Protein 6.3 G/DL (6.4-8.3)
[2020-09-21] MEDS: SODIUM CHLORIDE 3% 4 ML NEB RESP TX SCH ×2 (07:15→19:45)
[2020-09-21] MEDS: METOPROLOL TARTRATE 25 MG TABLET PO SCH ×2 (11:08→21:23)
[2020-09-21] MEDS: AMOXICILLIN/CLAV ES 600 125 ML/BOTTLE PO SCH ×2 (11:08→21:24)
[2020-09-21] MEDS: MULTIVITAMIN (CENTRUM) TABLET PO SCH (11:08)
[2020-09-21] MEDS: CHOLECALCIFEROL 1,000 UNIT TABLET PO SCH (11:08)
[2020-09-21] MEDS: ASCORBIC ACID 500 MG TABLET PO SCH (11:09)
[2020-09-21] MEDS: PHENYTOIN 100 MG/4 ML UDCUP PO SCH (11:09)
[2020-09-21] MEDS: SODIUM CHLORIDE 0.45% 1,000 ML IV SCH (16:00)
[2020-09-22] MEDS: SODIUM CHLORIDE 0.45% 1,000 ML IV SCH ×2 (04:54→17:18)
[2020-09-22 06:13] LABS: Basophils % 0.3 % (0.0-0.8); Eosinophils # 0.1 10*3/uL (0.0-0.87); Eosinophils % 0.7 % (0.00-10.9); Hematocrit 33.2 VOL% (35.7-47.0); Hemoglobin 10.2 GM/DL (12.0-16.0); Immature Granulocytes % 0.6 %; Immature Granulocytes Absolute 0.06 #; Lymphocytes # 1.2 10*3/uL (1.4-4.0); Lymphocytes % 12.1 % (21.3-54.2); Mean Corpuscular HGB Conc 30.7 GM/DL (32-36); Mean Corpuscular Volume 99.4 FL (87-102); Mean Platelet Volume 10.8 FL (9.6-12.0); Monocytes % 11.2 % (1.7-12.7); Neutrophils % 75.1 % (38.7-73.9); Platelet Count 280 T/CUMM (130-400); Red Blood Count 3.34 MC/CUMM (3.8-5.5); Red Cell Distribution Width 16.8 % (9.3-17.3); White Blood Count 9.9 T/CUMM (4-12)
[2020-09-22 06:35] LABS: Calcium 7.6 MG/DL (8.5-10.1); Osmolality,Calculated 286.3 MOS/KG (273-304); Potassium 4.5 MMOL/L (3.5-5.1)
[2020-09-22] MEDS: SODIUM CHLORIDE 3% 4 ML NEB RESP TX SCH ×2 (07:40→20:02)
[2020-09-22] MEDS: ASCORBIC ACID 500 MG TABLET PO SCH (09:46)
[2020-09-22] MEDS: MULTIVITAMIN (CENTRUM) TABLET PO SCH (09:46)
[2020-09-22] MEDS: AMOXICILLIN/CLAV ES 600 125 ML/BOTTLE PO SCH ×2 (09:46→21:38)
[2020-09-22] MEDS: PANTOPRAZOLE 40 MG TABLET PO SCH (09:46)
[2020-09-22] MEDS: METOPROLOL TARTRATE 25 MG TABLET PO SCH ×2 (09:46→21:39)
[2020-09-22] MEDS: CHOLECALCIFEROL 1,000 UNIT TABLET PO SCH (09:47)
[2020-09-22] MEDS: PHENYTOIN 100 MG/4 ML UDCUP PO SCH (11:29)
[2020-09-23 05:39] LABS: PT Patient Result 10.9 SECS (9.8-11.9)
[2020-09-23 05:54] LABS: Calcium 7.9 MG/DL (8.5-10.1); Osmolality,Calculated 280.4 MOS/KG (273-304); Potassium 4.1 MMOL/L (3.5-5.1)
[2020-09-23] MEDS: SODIUM CHLORIDE 3% 4 ML NEB RESP TX SCH ×2 (07:38→19:50)
[2020-09-23] MEDS ORDERED: LACTATED RINGERS 1,000 ML IV SCH (08:00)
[2020-09-23] MEDS: PANTOPRAZOLE 40 MG TABLET PO SCH (08:38)
[2020-09-23] MEDS: CHOLECALCIFEROL 1,000 UNIT TABLET PO SCH (08:38)
[2020-09-23] MEDS: AMOXICILLIN/CLAV ES 600 125 ML/BOTTLE PO SCH ×2 (08:38→21:50)
[2020-09-23] MEDS: PHENYTOIN 100 MG/4 ML UDCUP PO SCH (08:38)
[2020-09-23] MEDS: METOPROLOL TARTRATE 25 MG TABLET PO SCH (08:38)
[2020-09-23] MEDS: MULTIVITAMIN (CENTRUM) TABLET PO SCH (08:38)
[2020-09-23] MEDS: ASCORBIC ACID 500 MG TABLET PO SCH (08:38)
[2020-09-23] MEDS: SODIUM CHLORIDE 0.45% 1,000 ML IV SCH (08:59)
[2020-09-23] MEDS: METOPROLOL TARTRATE 50 MG TABLET PO SCH (21:49)
[2020-09-24 05:38] LABS: Basophils % 0.4 % (0.0-0.8); Eosinophils # 0.1 10*3/uL (0.0-0.87); Eosinophils % 0.6 % (0.00-10.9); Hematocrit 32.9 VOL% (35.7-47.0); Hemoglobin 10.7 GM/DL (12.0-16.0); Immature Granulocytes % 1.4 %; Immature Granulocytes Absolute 0.13 #; Lymphocytes # 1.1 10*3/uL (1.4-4.0); Lymphocytes % 11.6 % (21.3-54.2); Mean Corpuscular HGB Conc 32.5 GM/DL (32-36); Mean Corpuscular Volume 91.4 FL (87-102); Mean Platelet Volume 11.2 FL (9.6-12.0); Monocytes % 17.1 % (1.7-12.7); Neutrophils % 68.9 % (38.7-73.9); Platelet Count 303 T/CUMM (130-400); Red Cell Distribution Width 15.7 % (9.3-17.3)
[2020-09-24 06:13] LABS: Anisocytosis 1+; Eosinophils 2 % (0-10); Hypochromasia 2+; Lymphocytes 9 % (20-55); Macrocytosis 1+; Metamyelocytes 1 %; Platelet Estimate Normal; Segmented Neutrophils 73 % (50-85); Total Cells Counted 100
[2020-09-24] MEDS: SODIUM CHLORIDE 3% 4 ML NEB RESP TX SCH (07:28)
[2020-09-24] MEDS: AMOXICILLIN/CLAV ES 600 125 ML/BOTTLE PO SCH (08:36)
[2020-09-24] MEDS: PANTOPRAZOLE 40 MG TABLET PO SCH (08:36)
[2020-09-24] MEDS: MULTIVITAMIN (CENTRUM) TABLET PO SCH (08:36)
[2020-09-24] MEDS: METOPROLOL TARTRATE 50 MG TABLET PO SCH (08:36)
[2020-09-24] MEDS: PHENYTOIN 100 MG/4 ML UDCUP PO SCH (08:36)
[2020-09-24] MEDS: ASCORBIC ACID 500 MG TABLET PO SCH (08:36)
[2020-09-24] MEDS: CHOLECALCIFEROL 1,000 UNIT TABLET PO SCH (08:41)
[2020-09-24 12:00] VITALS: BP 147/81
== END 2020-09-24 15:11 | DRG 207 ==
LOC: EDBD → EDUNIT# → N.ED 06:01 → SUATTDRO 07:57 → N.EDINP 08:35 → N.ICU 09:15 → N.5E 09-15 15:56
PROVIDERS: ADMIT Internal Medicine; ATTEND Emergency Medicine